=== PATIENT | female | born 1990 | race Caucasian/White ===

== ENCOUNTER 2017-02-04 08:29 | Emergency (ER) | payer OTHER ==
[~2017-02-04] VITALS: Ht 165.1 cm; Wt 81.1 kg
[~2017-02-04 08:29] MED LIST: IBUP-1222 PO; OXYC-302 PO
[2017-02-04] MEDS ORDERED: SODIUM CHLORIDE FLUSH 10ML SYR IVF ONE (09:30)
[2017-02-04] MEDS ORDERED: GADOBUTROL 10 MMOL/10 ML PFS ONE (09:46)
[2017-02-04 10:03] LABS: BLOOD UREA NITROGEN 10 mg/dL (7-18)
[2017-02-04 11:56] VITALS: BP 132/68
== END 2017-02-04 11:59 | disposition home or self-care (01) ==
LOC: ED 11:40
DX: O90.89 Other complications of the puerperium, not elsewhere classified (principal); M54.16 Radiculopathy, lumbar region; M54.41 Lumbago with sciatica, right side; S39.012A Strain of muscle, fascia and tendon of lower back, initial encounter; X58.XXXA Exposure to other specified factors, initial encounter; Y93.89 Activity, other specified; Y99.8 Other external cause status; Y92.89 Other specified places as the place of occurrence of the external cause
CPT/HCPCS: 36415; 72158; 80048; 82040; 85025; 99285; A9585